=== PATIENT | female | born 1955 | race Caucasian/White ===

== ENCOUNTER 2017-05-14 19:19 | Emergency (ER) | payer BC, OTHER ==
[~2017-05-14] VITALS: Ht 162.6 cm; Wt 68.0 kg
[~2017-05-14 19:19] MED LIST: FLONASE 0.05%50 MCG NASAL; HYDROCODONE-APA10 ML PO; METFORMIN HCL500 MG PO; NAPROSYN500 MG PO; NORCO 5-325 TA1 EACH PO; PREDNISONE 20 M20 MG PO; PRILOSEC40 MG PO; PROMETHAZINE/C118 ML PO; ZPAK PO
[2017-05-14] MEDS ORDERED: LIPITOR10 MG PO (19:41)
[2017-05-14] MEDS ORDERED: ESCITALOPRAM OX10 MG PO (19:41)
[2017-05-14 20:00] LABS: ABSOLUTE NEUTROPHILS 2.3 thou/uL (1.4-8.2); BASOPHILS 0.8 % (0.0-2.0); EOSINOPHILS 2.9 % (0.0-3.0); HEMATOCRIT 38.3 % (37.0-47.0); HEMOGLOBIN 12.9 gm/dL (12.0-15.0); LYMPHOCYTES 46.9 % (24.0-44.0); MCH 30.7 pg (26.0-34.0); MCHC 33.8 g/dL (28.0-37.0); MCV 90.7 fL (80.0-100.0); MONOCYTES 8.1 % (1.0-8.0); PLATELET COUNT 284 thou/uL (150-400); POLYS 41.3 % (36.0-66.0); RBC 4.22 mil/uL (4.20-5.00); RDW 13.2 % (10.5-14.5); WBC 5.6 thou/uL (4.0-11.0)
[2017-05-14 20:09] LABS: CREATININE 0.8 mg/dL (0.6-1.0); POTASSIUM 3.5 mmol/L (3.5-5.1)
[2017-05-14 20:13] LABS: MANUAL DIFF NO
[2017-05-14 20:25] LABS: APTT 23.1 Seconds (24.5-32.8)
[2017-05-14 20:26] LABS: URINE BILIRUBIN NEGATIVE (Negative); URINE BLOOD 2+ (Negative); URINE COLOR YELLOW; URINE GLUCOSE-RANDOM* NEGATIVE (Negative); URINE KETONES NEGATIVE (Negative); URINE LEUKOCYTES-REFLEX 2+ (Negative); URINE PROTEIN (DIPSTICK) NEGATIVE (Negative); URINE SPECIFIC GRAVITY 1.025 (1.003-1.035); URINE UROBILINOGEN 0.2 E.U./dl (0.2-1.0)
[2017-05-14 20:37] LABS: SQUAMOUS 4-10 Moderate /LPF (0-3)
[2017-05-14 20:38] LABS: CASTS None Seen /LPF (None Seen); CRYSTALS None Seen /LPF (None Seen); URINE RBC 3-10 Few /HPF (0-2)
[2017-05-14] MEDS ORDERED: CIPROFLOXACIN500 M1 PO (21:02)
[2017-05-14 21:18] VITALS: BP 133/72
== END 2017-05-14 21:03 | disposition home or self-care (01) ==
LOC: ER 19:19
PROVIDERS: Emergency Medicine
DX: R31.9 Hematuria, unspecified (principal); N39.0 Urinary tract infection, site not specified; Z98.890 Other specified postprocedural states; Z88.0 Allergy status to penicillin

== ENCOUNTER 2017-12-05 16:28 | Emergency (ER) | payer BC, OTHER ==
[~2017-12-05] VITALS: Ht 162.6 cm; Wt 68.0 kg
[~2017-12-05 16:28] MED LIST changes: +CIPROFLOXACIN500 M1 PO; +ESCITALOPRAM OX10 MG PO; +LIPITOR10 MG PO
[2017-12-05] MEDS ORDERED: MUCINEX D ER 11 EACH PO (17:43)
[2017-12-05] MEDS ORDERED: KEFLEX500 M1 PO (17:43)
[2017-12-05] MEDS ORDERED: NORCO 5-325 TA1 EACH PO (17:43)
== END 2017-12-05 17:51 | disposition home or self-care (01) ==
LOC: ER 16:28
DX: J32.0 Chronic maxillary sinusitis (principal); F17.210 Nicotine dependence, cigarettes, uncomplicated; Z88.0 Allergy status to penicillin